=== PATIENT | male | born 1950 | race Caucasian/White ===

== ENCOUNTER 2017-04-12 18:08 | Emergency (ER) | payer OTHER ==
--- NOTE | 2017-04-12 18:26 | ED NURSING NOTES ---
Clinical Report - Nurses [facility] [place] [address] 04/12/2017 18:09 Patient: ADRIAN ARROYO TRIAGE Triage time 18:14. Chief Complaint: (here for medication refill). --18:14 Clementine Fernando R.N. Acuity: LEVEL 5. Chief Complaint: (needs pain meds for "shingles on my left arm", diagnosed at [facility]). Alert. --18:24 Clementine Fernando R.N. 18:17 04/12/17. BP: 151/92. HR: 92. RR: 18. O2 saturation: 95%. Temp: 98.3 F. Pain level now: 05/12. --18:24 Clementine Fernando R.N. Weight: 110.6 kg stated. Height/Length: 69 inches Per Patient. BMI: 36. --18:24 Clementine Fernando R.N. Medications Hydrocodone-Acetaminophen Oral, has 1 left. --18:20 Clementine Fernando R.N. Acyclovir Oral. --18:21 Clementine Fernando R.N. Allergies Tape. --18:21 Clementine Fernando R.N. History Arrived by private vehicle. --18:14 Clementine Fernando R.N. Primary physician (Phillip Becerra). Reports muscle aches. He has had a painful skin rash located on the chest, left arm, left elbow, left forearm and left wrist (- still present). --18:24 Clementine Fernando R.N. SOCIAL HX: Never smoker. Occasional alcohol use; consumes one beer. History of drug use: marijuana. FALL RISK ASSESSMENT: Fall risk assessment completed. No fall risk identified. --18:26 Clementine Fernando R.N. Interventions ID band on patient. To room. --18:24 Clementine Fernando R.N. PHYSICAL ASSESSMENT HEENT: ( ERMD seeing pt. now in triage). --18:24 Clementine Fernando R.N. NURSING PROGRESS NOTES 18:24 04/12/17. Patient identifiers checked. Bed placed in lowest position. Patient ready for evaluation- chart flagged. --18:24 Clementine Fernando R.N. DISPOSITION / DISCHARGE Departure time: 1831. Condition at departure: unchanged. No learning barriers present. Discharge instructions provided and reviewed with the patient. Reviewed referrals. Verbalized understanding. Written instructions provided. --18:34 Clementine Fernando R.N. 18:31. Reviewed medication(s) side effects, precautions, dosing and course information. Prescription(s) given to the patient. --18:35 Clementine Fernando R.N. Locked/Released at 04/13/2017 10:20 by Clementine Fernando R.N.
--- NOTE | 2017-04-12 18:26 | ED CLINICAL REPORT ---
Clinical Report - Physicians/Mid Levels [facility] [address] [place] [address] 04/12/2017 18:09 Patient: ADRIAN ARROYO Time Seen: 18:19. Arrived- By private vehicle. Historian- patient. HISTORY OF PRESENT ILLNESS Chief Complaint: SKIN RASH. At its maximum, severity described as moderate. When seen in the E.D., severity described as moderate. Modifying factors- (pain meds help, but he has only one remaining). This started about 4 - 5 days ago and is still present. It was gradual in onset and has been constant. No fatigue or weakness. Similar symptoms previously: None. Recent medical care: The patient was seen recently in a clinic. Evaluation/treatment: antibiotic and pain medication prescribed. Diagnosis: (Shingles). REVIEW OF SYSTEMS No fever, sore throat, sinus drainage, nasal congestion or cough. No difficulty breathing, chest pain, abdominal pain, nausea or vomiting. No diarrhea, black stools, difficulty with urination, back pain or headache. The patient has had a moderate, painful skin rash located on the left arm, left elbow, left forearm, left wrist and left hand. No difficulty with ambulation. All systems otherwise negative, except as recorded above. PAST HISTORY See nurses notes. Primary physician (Phillip Becerra). Shingles. Medications: Acyclovir Oral. Hydrocodone-Acetaminophen Oral, has 1 left. Allergies: Tape. SOCIAL HISTORY Never smoker. Occasional alcohol use. History of drug use: marijuana. ADDITIONAL NOTES The nursing notes have been reviewed. PHYSICAL EXAM Vital Signs: 04/12/2017 18:17 BP: 151/92. HR: 92. RR: 18. O2 saturation: 95%. Temp: 98.3 F. Pain level now: 05/12. Appearance: Alert. Patient in mild distress. Eyes: Eyes normal inspection. No scleral icterus or pale conjunctivae. ENT: Pharynx normal. Neck: Normal inspection. Neck supple. CVS: Normal heart rate and rhythm. Heart sounds normal. Pulses normal. Respiratory: No respiratory distress. Breath sounds normal. Abdomen: No visible injury. Soft. Back: Normal inspection. Skin: No cyanosis. Skin rash. No pallor. Rash present on the left arm, forearm and hand. The rash is vesicular and erythematous. There is weeping and crusting. Extremities: (Zoster lesions on the medial aspect of the left arm, forearm and hand). Neuro: Oriented X 3. No motor deficit. LABS, X-RAYS, AND EKG Pulse Oximetry: 04/12/2017 18:17 O2 saturation: 95%. (FIO2 - room air). Interpretation: normal. PROGRESS AND PROCEDURES Course of Care: Pt with evident Zoster involving the C8, T1 dermatome. No signs of nec fasc or other evident cellultis now. No systemic symptoms or fever. Patient/family counseled. Disposition: Discharged. Condition: stable and improved. CLINICAL IMPRESSION Chronic substance abuse- marijuana. Herpes zoster with postherpetic neuralgia. No keratitis. INSTRUCTIONS No alcohol until released. Warnings: Further evaluation is necessary. It is very important to follow up with a physician. GENERAL WARNINGS: Return or contact your physician immediately if your condition worsens or changes unexpectedly, if not improving as expected, or if other problems arise. Your Current Medications: CONTINUE TAKING THE FOLLOWING MEDICATIONS: Acyclovir Oral. Hydrocodone-Acetaminophen Oral : has 1 left. Prescription Medications: Hydrocodone/APAP 5mg/325mg: take 1 to 2 orally every 6 hours as needed for pain. Dispense fifteen (15). No refills. Follow-up: Follow up with your doctor in about three days. (Electronically signed by Patrick Jackson DO 04/12/2017 19:37)
--- NOTE | 2017-04-12 18:26 | ED NURSING NOTES ---
Clinical Report - Nurses [facility]erged [facility] [place] [address] 04/12/2017 18:09 Patient: ADRIAN ARROYO TRIAGE Triage time 18:14. Chief Complaint: (here for medication refill). --18:14 Clementine Fernando R.N. Acuity: LEVEL 5. Chief Complaint: (needs pain meds for "shingles on my left arm", diagnosed at [facility]). Alert. --18:24 Clementine Fernando R.N. 18:17 04/12/17. BP: 151/92. HR: 92. RR: 18. O2 saturation: 95%. Temp: 98.3 F. Pain level now: 05/12. --18:24 Clementine Fernando R.N. Weight: 110.6 kg stated. Height/Length: 69 inches Per Patient. BMI: 36. --18:24 Clementine Fernando R.N. Medications Hydrocodone-Acetaminophen Oral, has 1 left. --18:20 Clementine Fernando R.N. Acyclovir Oral. --18:21 Clementine Fernando R.N. Allergies Tape. --18:21 Clementine Fernando R.N. History Arrived by private vehicle. --18:14 Clementine Fernando R.N. Primary physician (Phillip Becerra). Reports muscle aches. He has had a painful skin rash located on the chest, left arm, left elbow, left forearm and left wrist (- still present). --18:24 Clementine Fernando R.N. SOCIAL HX: Never smoker. Occasional alcohol use; consumes one beer. History of drug use: marijuana. FALL RISK ASSESSMENT: Fall risk assessment completed. No fall risk identified. --18:26 Clementine Fernando R.N. Interventions ID band on patient. To room. --18:24 Clementine Fernando R.N. PHYSICAL ASSESSMENT HEENT: ( ERMD seeing pt. now in triage). --18:24 Clementine Fernando R.N. NURSING PROGRESS NOTES 18:24 04/12/17. Patient identifiers checked. Bed placed in lowest position. Patient ready for evaluation- chart flagged. --18:24 Clementine Fernando R.N. DISPOSITION / DISCHARGE Departure time: 1831. Condition at departure: unchanged. No learning barriers present. Discharge instructions provided and reviewed with the patient. Reviewed referrals. Verbalized understanding. Written instructions provided. --18:34 Clementine Fernando R.N. 18:31. Reviewed medication(s) side effects, precautions, dosing and course information. Prescription(s) given to the patient. --18:35 Clementine Fernando R.N. Locked/Released at 04/13/2017 10:20 by Clementine Fernando R.N.
--- NOTE | 2017-04-13 10:21 | ED MED RECONCILIATION SUMMARY ---
Patient: ADRIAN ARROYO Medication Reconciliation Report [facility] VisitID: [id number] [address] [place] [address] 67y, M Registration Date/Time: 04/12/2017 Weight: 110.6 kg Height/Length: 69 in. BMI: 36.0 ALLERGIES: Tape The patient's Home Medications are listed below: CONTINUE TAKING THE FOLLOWING MEDICATIONS: Acyclovir Oral Hydrocodone-Acetaminophen Oral, has 1 left The source(s) of the original Home Medication information: Not obtained. The following Medications were given to the patient in the Emergency Department: None. The following Medications were prescribed to the patient: Hydrocodone/APAP 5mg/325mg: take 1 to 2 orally every 6 hours as needed for pain. Dispense fifteen (15). No refills. -- Patrick Jackson, DO
--- NOTE | 2017-04-13 10:21 | ED MED RECONCILIATION SUMMARY ---
Patient: ADRIAN ARROYO Medication Reconciliation Report [facility] VisitID: [id number] [address] [place] [address] 67y, M Registration Date/Time: 04/12/2017 Weight: 110.6 kg Height/Length: 69 in. BMI: 36.0 ALLERGIES: Tape The patient's Home Medications are listed below: CONTINUE TAKING THE FOLLOWING MEDICATIONS: Acyclovir Oral Hydrocodone-Acetaminophen Oral, has 1 left The source(s) of the original Home Medication information: Not obtained. The following Medications were given to the patient in the Emergency Department: None. The following Medications were prescribed to the patient: Hydrocodone/APAP 5mg/325mg: take 1 to 2 orally every 6 hours as needed for pain. Dispense fifteen (15). No refills. -- Patrick Jackson, DO
--- NOTE | 2017-04-13 10:21 | ED MAR SUMMARY ---
..... Medication Administration Record [facility] [address], [place] [id number] Patient: ADRIAN ARROYO Visit ID: [id number] 67y, M Weight: 110.6 kg Height/Length: 69 in BMI: 36 ALLERGIES: Tape
--- NOTE | 2017-04-13 10:21 | ED DISCHARGE INSTRUCTIONS ---
Patient: ADRIAN ARROYO General Instructions [facility] VisitID: [id number] [place] [address] 67y, M Registration Date/Time: 04/12/2017 Chronic substance abuse- marijuana. Herpes zoster with postherpetic neuralgia. No keratitis. INSTRUCTIONS No alcohol until released. Warnings: Further evaluation is necessary. It is very important to follow up with a physician. GENERAL WARNINGS: Return or contact your physician immediately if your condition worsens or changes unexpectedly, if not improving as expected, or if other problems arise. Your Current Medications: CONTINUE TAKING THE FOLLOWING MEDICATIONS: Acyclovir Oral. Hydrocodone-Acetaminophen Oral : has 1 left. Prescription Medications: Hydrocodone/APAP 5mg/325mg: take 1 to 2 orally every 6 hours as needed for pain. Dispense fifteen (15). No refills. Follow-up: Follow up with your doctor in about three days. ADDITIONAL INFORMATION Marijuana Abuse Marijuana is the most widely used illegal drug in the [place]. It is called by various names such as pot, weed, blunts, grass, reefer, ganja, hash, hashish. It is usually smoked but can be mixed with foods or brewed as a tea. It is sometimes sold with PCP (Esequiel Dust) or amphetamine mixed in it. These drugs can cause other harmful side effects. Marijuana can cause the following effects: Changes in mood (stimulated, happy, drowsy, depressed, paranoid) Hallucinations Increased heart rate and blood pressure Increased appetite Time distortion, difficulty concentrating, impaired memory Lung damage (similar to cigarettes with chronic cough, wheezing, frequent colds and bronchitis) You can become psychologically dependent on marijuana. That means the craving to use the drug is emotional or psychological rather than due to physical withdrawal. Is Marijuana Running Your Life? Here are some of the signs: Relying on marijuana to feel good, forget problems, deal with stress or to relax Wanting to be alone most of the time or only with others who use drugs Losing interest in things that used to be important Changes in school or job performance or attendance Spending a lot of time thinking about how to get marijuana Stealing or selling your things so you can buy marijuana Unable to stop using even though you may want to quit Increasing anxiety, anger,or depression Sleeping too much, changes in eating habits (weight loss or gain) Needing to use more to get the same effect Home Care Once you have become addicted to any drug, quitting is hard to do. Most people find they can't quit without help. So, dont try to do this alone. Talk to someone you trust who can support you. Seek professional help. Avoid people and places where drugs are used. That only increases the temptation to use. Follow Up with your doctor or as advised by our staff. For more information or a referral to a treatment center in your area, contact: Your local mental health center or the National Alcohol and Substance Abuse Information Center (714)-783-9817 www.addictioncareWonderloop.[employer] National [place] on Alcoholism and Drug Dependence 584-624-YBVU www.ncadd.org Marijuana Anonymous 148-877-0364 www.marijuana-anonymous.org Get Prompt Medical Attention if any of the following occur: You feel extreme depression, fear, anxiety, or anger toward yourself or others You feel out of control You feel that you may try to harm yourself or another Shingles Anyone who has had chicken pox may get shingles later in life. It is caused by the same virus that has remained dormant (asleep) in your body. Shingles usually occurs in adults over the age of 50 or those with lowered immunity (cancer treatment, prolonged steroid use, HIV or AIDS). It starts as a tingling patch of skin on one side of the body. During the first several days small painful blisters appear in this area. However, unlike chicken pox the rash does not spread to the rest of the body. The blister fluid contains the virus. Exposure to shingles cannot cause shingles. However, it can cause chicken pox in anyone who has never had chicken pox before. The contagious period ends when all blisters have crusted over (usually about two weeks after the illness begins). Scarring may occur where the blisters appear. Sometimes there is continued sensitivity and pain in the involved patch of skin for months after the infection (neuralgia). Persons older than 50 or those with a weakened immune system may be treated with antiviral medicines to reduce pain, shorten the illness and prevent neuralgia. Zostavax is a vaccine that can help prevent shingles or make it less painful. It is recommended for adults over the age of 60 who have had chicken pox in the past, but not shingles. Adults over 60 who have had neither chicken pox nor shingles can prevent both diseases with a Varicella vaccine. Home Care: You may use acetaminophen (Tylenol) or ibuprofen (Motrin, Advil) to control pain, unless another medicine was prescribed. [NOTE: If you have chronic liver or kidney disease or ever had a stomach ulcer or GI bleeding, talk with your doctor before using these medicines.] (Aspirin should never be used in anyone under 18 years of age who is ill with a fever. It may cause severe liver damage.) To relieve itching and pain, make a solution of cool water mixed with cornstarch, baking soda, Aveeno Oatmeal, or Domeboro powder (available without a prescription). Apply the solution as a compress to the area. This will soothe the skin. Calamine or Caladryl lotion may help. Oral Benadryl (diphenhydramine) is an antihistamine available at drug and grocery stores. Unless a prescription antihistamine was given, Benadryl may be used to reduce itching if large areas of the skin are involved. Use lower doses during the daytime and higher doses at bedtime since the drug may make you sleepy. [NOTE: Do not use Benadryl if you have glaucoma or if you are a man with trouble urinating due to an enlarged prostate.] Claritin (loratidine) is an antihistamine that causes less drowsiness and is a good alternative for daytime use. Wash skin with soap and water to keep rash free of infection. Trim fingernails to prevent scratching. Scratching the sores may leave scars. Stay home from work or school until all blisters have formed a crust and you are no longer contagious. Follow Up with your doctor or as directed by our staff if the above measures do not bring relief. GET PROMPT MEDICAL ATTENTION if any of the following occur: Headache or stiff neck Increasing drowsiness, confusion or bizarre behavior Cough with trouble breathing or fast breathing (over 25 breaths per minute) Pain, redness or swelling of a joint Fever of 100.4F (38C) or higher, or as directed by your healthcare provider Eye pain or changes in vision or sores that appear near the eye Signs of skin infection (yellow or white drainage from the sores, increasing redness or pain) Weakness or numbness of an arm or leg Difficulty speaking, swallowing or walking Seizure Hydrocodone Bitartrate, Acetaminophen Oral tablet What is this medicine? ACETAMINOPHEN; HYDROCODONE (a set a ADIS gareth fen; christopher droe KOE done) is a pain reliever. It is used to treat mild to moderate pain. How should I use this medicine? Take this medicine by mouth. Swallow it with a full glass of water. Follow the directions on the prescription label. If the medicine upsets your stomach, take the medicine with food or milk. Do not take more than you are told to take. Talk to your cash processing specialist regarding the use of this medicine in children. This medicine is not approved for use in children. What side effects may I notice from receiving this medicine? Side effects that you should report to your doctor or health nursing care partner as soon as possible: allergic reactions like skin rash, itching or hives, swelling of the face, lips, or tongue breathing problems confusion feeling faint or lightheaded, falls stomach pain yellowing of the eyes or skin Side effects that usually do not require medical attention (report to your doctor or health nursing care partner if they continue or are bothersome): nausea, vomiting stomach upset What may interact with this medicine? alcohol antihistamines isoniazid medicines for depression, anxiety, or psychotic disturbances medicines for sleep muscle relaxants naltrexone narcotic medicines (opiates) for pain phenobarbital ritonavir tramadol What if I miss a dose? If you miss a dose, take it as soon as you can. If it is almost time for your next dose, take only that dose. Do not take double or extra doses. Where should I keep my medicine? Keep out of the reach of children. This medicine can be abused. Keep your medicine in a safe place to protect it from theft. Do not share this medicine with anyone. Selling or giving away this medicine is dangerous and against the law. Store at room temperature between 15 and 30 degrees C (59 and 86 degrees F). Protect from light. Keep container tightly closed. Throw away any unused medicine after the expiration date. Discard unused medicine and used packaging carefully. Pets and children can be harmed if they find used or lost packages. What should I tell my health care provider before I take this medicine? They need to know if you have any of these conditions: brain tumor Crohn's disease, inflammatory bowel disease, or ulcerative colitis drink more than 3 alcohol-containing drinks per day drug abuse or addiction head injury heart or circulation problems kidney disease or problems going to the bathroom liver disease lung disease, asthma, or breathing problems an unusual or allergic reaction to acetaminophen, hydrocodone, other opioid analgesics, other medicines, foods, dyes, or preservatives or trying to get breast-feeding What should I watch for while using this medicine? Tell your doctor or health nursing care partner if your pain does not go away, if it gets worse, or if you have new or a different type of pain. You may develop tolerance to the medicine. Tolerance means that you will need a higher dose of the medicine for pain relief. Tolerance is normal and is expected if you take the medicine for a long time. Do not suddenly stop taking your medicine because you may develop a severe reaction. Your body becomes used to the medicine. This does NOT mean you are addicted. Addiction is a behavior related to getting and using a drug for a non-medical reason. If you have pain, you have a medical reason to take pain medicine. Your doctor will tell you how much medicine to take. If your doctor wants you to stop the medicine, the dose will be slowly lowered over time to avoid any side effects. You may get drowsy or dizzy when you first start taking the medicine or change doses. Do not drive, use machinery, or do anything that may be dangerous until you know how the medicine affects you. Stand or sit up slowly. There are different types of narcotic medicines (opiates) for pain. If you take more than one type at the same time, you may have more side effects. Give your health care provider a list of all medicines you use. Your doctor will tell you how much medicine to take. Do not take more medicine than directed. Call emergency for help if you have problems breathing. The medicine will cause constipation. Try to have a bowel movement at least every 2 to 3 days. If you do not have a bowel movement for 3 days, call your doctor or health nursing care partner. Too much acetaminophen can be very dangerous. Do not take Tylenol (acetaminophen) or medicines that contain acetaminophen with this medicine. Many non-prescription medicines contain acetaminophen. Always read the labels carefully. You have been given the following additional information: Marijuana Abuse Herpes Zoster Hydrocodone Bitartrate, Acetaminophen Oral tablet (Electronically signed by Patrick Jackson DO 04/12/2017 19:37)
--- NOTE | 2017-04-13 10:21 | ED MAR SUMMARY ---
..... Medication Administration Record [facility] [address] [place], [place] [id number] Patient: ADRIAN ARROYO Visit ID: [id number] 67y, M Weight: 110.6 kg Height/Length: 69 in BMI: 36 ALLERGIES: Tape
== END 2017-04-12 18:31 | disposition home or self-care (01) ==
LOC: ED SRH 18:08
DX: B02.29 Other postherpetic nervous system involvement (principal); F12.10 Cannabis abuse, uncomplicated; Z79.891 Long term (current) use of opiate analgesic; Z79.899 Other long term (current) drug therapy; Z91.048 Other nonmedicinal substance allergy status